=== PATIENT | female | born 1995 ===

== ENCOUNTER 2017-12-27 09:32 | Emergency (ER) | payer OTHER ==
[2017-12-27 10:15] VITALS: BP 97/57
--- NOTE | 2017-12-28 18:50 | UC ---
Cydney Oliveira Nilda, scribed for Antony Arguello MD on 12/27/17 at 1102 . Eye Complaint HPI - HPI Summary HPI Summary: This patient is a 22 year old F [place] [facility] [place] a chief complaint of constant pruritic right eye injection with discharge since last night. The patient rates the pain 0/10 in severity. Symptoms aggravated and alleviated by nothing. Patient reports she woke up "with crispy eyes." Pt states recent sick contacts. - History of Current Complaint Chief Complaint: UCEye Stated Complaint: eye complaint Time Seen by Provider: 12/27/17 10:51 Hx Obtained From: Patient Hx Last Menstrual Period: 12/16/17 Onset/Duration: Sudden Onset, Lasting Hours, Still Present Timing: Constant Pain Intensity: 0 Pain Scale Used: 0-10 Numeric Aggravating Factor(s): Nothing Alleviating Factor(s): Nothing Associated Signs And Symptoms: Positive: Drainage (Purulent) - Allergies/Home Medications Allergies/Adverse Reactions: Allergies Allergy/AdvReac Type Severity Reaction Status Date / Time amoxicillin Allergy Rash Verified 12/27/17 10:16 Penicillins Allergy Rash Verified 12/27/17 10:16 Sulfa (Sulfonamide Allergy Rash Verified 12/27/17 10:16 Antibiotics) Home Medications: Home Medications Hydroxychloroquine TAB* [Plaquenil TAB*] 400 mg PO DAILY 12/27/17 [History Confirmed 12/27/17] Multiple Vitamins W/ Minerals [Multivitamin] 1 tab PO DAILY 12/27/17 [History Confirmed 12/27/17] PMH/Surg Hx/FS Hx/Imm Hx - Additional Past Medical History Additional PMH: Rheumatoid arthritis - Surgical History Surgical History: Yes Surgery Procedure, Year, and Place: [place] [facility] 2012 - Family History Known Family History: Positive: Other - CA, autoimmune disease - Social History Alcohol Use: Weekly Substance Use Type: None Smoking Status (MU): Never Smoked Tobacco Review of Systems Eyes: Drainage, Eye Redness, Other - pruritic eye Respiratory: Negative All Other Systems Reviewed And Are Negative: Yes Physical Exam Triage Information Reviewed: Yes Vital Signs: Initial Vital Signs Temp 98.4 F 12/27/17 10:10 Pulse 70 12/27/17 10:10 Resp 16 12/27/17 10:10 BP 97/57 12/27/17 10:10 Pulse Ox 97 12/27/17 10:10 Vital Signs Reviewed: Yes - Additional Comments VITAL SIGNS: Reviewed. GENERAL: Patient is a well developed and nourished F who is lying comfortable in the stretcher. Patient is not in any acute respiratory distress. HEAD AND FACE: Normocephalic EYES: PERRLA, EOMI x 2. Injected conjunctiva in right eye with some dry secretions. EARS: Hearing grossly intact. MOUTH: Oropharynx within normal limits. NECK: Supple, trachea is midline, no adenopathy, no JVD, no carotid bruit. CHEST: Symmetric, no tenderness at palpation LUNGS: Clear to auscultation bilaterally. No wheezing or crackles. CVS: Regular rate and rhythm, S1 and S2 present, no murmurs or gallops appreciated. ABDOMEN: Soft, non-tender. Bowel sounds are normal. No abdominal abnormal pulsations. EXTREMITIES: Full ROM in all major joints, no edema, no cyanosis or clubbing. NEURO: Alert and oriented x 3. No acute neurological deficits. Speech is normal and follows commands. SKIN: Dry and warm Eye Complaint Course/Dx - Course Course Of Treatment: This patient is a 22 year old F [place] [facility] [place] a chief complaint of constant pruritic right eye injection with discharge since last night. The patient rates the pain 0/10 in severity. Symptoms aggravated and alleviated by nothing. Patient reports she woke up with crispy eyes. Pt states recent sick contacts. Pt is stable and will be D/C with a Dx of conjunctivitis and a prescription for opthalmic Cipro. I discussed all the findings and test results with the patient. Pt was instructed to return to the urgent care or go to ER immediately if any of the symptoms return or worsens. Plan of care was discussed with the patient and pt understands and agrees. All questions were answered to patient satisfaction. There were no further complaints or concerns. - Differential Dx/Diagnosis Provider Diagnoses: Conjunctivitis Discharge - Discharge Plan Condition: Stable Disposition: HOME Prescriptions: Ciprofloxacin 0.3% OPTH.LICO* [Cipro 0.3% Opth*] 1 drop LEFT EYE Q2H #1 btl Patient Education Materials: Conjunctivitis (ED) Referrals: [facility] [place] [facility]ERR[facility] [Outside] No Primary Care Phys,NOPCP [Primary Care Provider] - Additional Instructions: Apply medications as indicated F/U with PCP The documentation as recorded by the Cydney najera Nilda accurately reflects the service I personally performed and the decisions made by me, Antony Arguello MD.
== END 2017-12-27 11:19 | disposition home or self-care (01) ==
LOC: UCEAST 09:32
DX: H10.31 Unspecified acute conjunctivitis, right eye (principal); M06.9 Rheumatoid arthritis, unspecified; Z88.0 Allergy status to penicillin; Z88.2 Allergy status to sulfonamides
CPT/HCPCS: 99212; G0463